=== PATIENT | female | born 1985 | race Caucasian/White ===

== ENCOUNTER 2018-06-16 09:41 | Emergency (ER) | payer OTHER ==
[2018-06-16 10:24] VITALS: BP 124/87
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
== END 2018-06-16 10:18 | disposition home or self-care (01) ==
LOC: ED 09:41
DX: S50.01XA Contusion of right elbow, initial encounter (principal); S16.1XXA Strain of muscle, fascia and tendon at neck level, initial encounter; V43.52XA Car driver injured in collision with other type car in traffic accident, initial encounter; Y92.9 Unspecified place or not applicable; Z88.2 Allergy status to sulfonamides
CPT/HCPCS: 99281